=== PATIENT | female | born 1955 | race Two or more races ===

== ENCOUNTER → 2016-06-04 | Outpatient (CLI) | payer OTHER | LOC: BRMIMAGING 15:16 | DX: Z12.31 Encounter for screening mammogram for malignant neoplasm of breast (principal) | CPT/HCPCS: G0202 ==

== ENCOUNTER → 2016-06-23 | Outpatient (CLI) | payer OTHER | LOC: BRMIMAGING 09:16 | DX: R92.8 Other abnormal and inconclusive findings on diagnostic imaging of breast (principal) | CPT/HCPCS: G0206 ==

== ENCOUNTER 2017-08-09 10:49 | Emergency (ER) | payer OTHER ==
--- NOTE | 2017-08-09 11:13 | CPEKG ---
Heart Rate: 84 RR Interval: 714 P-R Interval: 156 QRSD Interval: 86 QT Interval: 408 QTC Interval: 483 P Benton: 13 QRS Benton: 28 T Wave Benton: -25 EKG Severity - ABNORMAL ECG - EKG Impression: SINUS RHYTHM EKG Impression: BORDERLINE INFERIOR Q WAVES EKG Impression: BORDERLINE T ABNORMALITIES, INFERIOR LEADS Electronically Signed By: Cindy Oliveira 09-Aug-2017 15:21:44
[2017-08-09] MEDS ORDERED: NS 1,000 ML IV ONE ×2 (11:15→12:03)
[2017-08-09] MEDS ORDERED: ONDANSETRON 4 MG/2 ML VIAL IVP ONE (11:15)
--- NOTE | 2017-08-09 11:16 | EDPHY ---
H & P Stated Complaint: nause vomit epigastric pain Source: Patient, Family, [employer] Exam Limitations: Language barrier - Personal History Current Tetanus/Diphtheria Vaccine: Unsure Current Tetanus Diphtheria and Acellular Pertussis (TDAP): Unsure - Medical/Surgical History Hx Asthma: No Hx Chronic Respiratory Disease: No Hx Diabetes: No Hx Cardiac Disease: No Hx Renal Disease: No Hx Cirrhosis: No Hx Alcoholism: No Hx HIV/AIDS: No Hx Splenectomy or Spleen Trauma: No Other PMH: med hx-none. surg-cataracts,left ear3 - Social History Smoking Status: Never smoked Time Seen by Provider: 08/09/17 11:14 HPI/ROS: HPI: This is a 62-year-old female who presents with Chief Complaint: nausea vomit epigastric pain Location: Epigastric Quality: Nausea vomiting discomfort Duration: Starting this morning around 8:00 a.m. Signs and Symptoms: no fever, + chills, + nausea, + vomiting, no hematemesis, no blood in stool, no abdominal bloating, no diarrhea, no back pain, no urinary symptoms, no vaginal bleeding/discharge, no indigestion, no chest pain, no shortness of breath Timing: Acute, constant Severity: 10/18 Context: Patient reports that 2 weeks ago she had her left bottom tooth extracted. She was placed on 7 weeks of antibiotics. She went to see the dentist for follow-up yesterday and placed on another 7 days of Keflex and given oxycodone with Tylenol for pain control. She has taken 3 doses of the Keflex. She reports that after taking the Keflex and oxycodone yesterday evening she was nauseous but did not vomit. This morning she woke up with chills. She took her Keflex and oxycodone and felt nauseous. 1 hr later she vomited her stomach contents. She then started to experience some epigastric abdominal discomfort, nonradiating in nature. Touching the area makes the pain worse. She had a normal bowel movement this morning. Denies any diarrhea/fever /urinary symptoms. She denies any jaw pain/facial swelling. She was able to eat breakfast without difficulty. No history of abdominal surgery. Modifying Factors: See above Comment: ROS: see HPI Constitutional: No fever, + chills, no weight loss Eyes: No blurred vision Respiratory: No shortness of breath, no cough Cardiovascular: No chest pain, no palpitations Gastrointestinal: + nausea, + vomiting, no diarrhea, no hematemesis, no blood in stool Genitourinary: No dysuria, no blood in urine Extremities: No myalgias, no edema Neurologic: No weakness, no numbness Skin: No rashes, no petechiae Hematologic: No bruising, no bleeding MEDICAL/SURGICAL/SOCIAL HISTORY: Medical history: Generally healthy. Does not take any regular medications. Surgical history: Cataracts, left ear x3 Social history: Family history noncontributory. CONSTITUTIONAL: Ill but nontoxic-appearing elderly female, multiple family members at bedside, awake and alert, no obvious distress HEENT: Atraumatic and normocephalic, PERRL, EOMI. Nares patent; no rhinorrhea; no nasal mucosal edema. Tympanic membranes clear. Oropharynx clear, no exudate and moist pink mucosa. Airway patent. No lymphadenopathy. No meningismus. Cardiovascular: Normal S1/S2, regular rate, regular rhythm, without murmur rub or gallop. PULMONARY/CHEST: Symmetrical and nontender. Clear to auscultation bilaterally. Good air movement. No accessory muscle usage. ABDOMEN: Soft, nondistended, mild epigastric tenderness, no rebound, no guarding, no peritoneal signs, no masses or organomegaly. No CVAT. EXTREMITIES: 2/2 pulses, strength 5/5, no deformities, no clubbing, no cyanosis or edema. NEUROLOGICAL: no focal neuro deficits. GCS 15. SKIN: Warm and dry, no erythema. no rash. Good capillary refill. (Yang,Terra) Constitutional: Initial Vital Signs Temperature (C) 37.0 C 08/09/17 11:00 Heart Rate 88 08/09/17 11:00 Respiratory Rate 22 H 08/09/17 11:00 Blood Pressure 160/100 H 08/09/17 11:00 O2 Sat (%) 100 08/09/17 11:00 O2 Delivery Mode Room Air Allergies/Adverse Reactions: Sulfa (Sulfonamide Antibiotics) Allergy (Verified 04/22/14 10:36) Home Medications: Medication Instructions Recorded Multiple Vitamins For Women 06/28/13 HYDROmorphone HCL [Dilaudid 2 mg 2 mg PO Q4 PRN #12 tab 08/09/17 (*)] Keflex 08/09/17 Promethazine HCl [Phenergan 12.5mg 12.5 mg PO Q6 PRN #12 tablet 08/09/17 tab] Medical Decision Making - Diagnostics EKG Interpretation: 12 lead EKG is interpreted in Trace master View by emergency department physician. (Cindy Oliveira) ED Course/Re-evaluation: EKG, labs including lactic acid, IV fluids, IV medication, CT abdomen and pelvis scan ordered Vital signs reviewed and stable. No systemic signs. Given 1 L normal saline, IV Zofran EKG shows normal sinus rhythm rate of 84 beats per minute, nonspecific T-waves noted. 1200: Labs reviewed. Lactic acid 5; 30 ml/kg=2 L NS. No signs of leukocytosis /anemia/JENNY/elevated LFTs/electrolyte imbalance/coagulopathy/pancreatitis/ACS. 1230: Called by radiologist who advised that there is 9 mm gallstone; no signs of cholecystitis. Lung bases do not show effusion or pneumonia. No signs of obstruction, hiatal hernia, appendicitis. Right upper quadrant ultrasound ordered. 1307: Urinalysis shows trace LE; but no clear signs of infection 1310: Repeat lactic acid drawn after completion of 2 L normal saline. Repeat lactic acid 1.8; doubt sepsis 1322: ED decision to consult hospitalist for admission for severely elevated lactic acid etiology likely dehydration for IV fluids, repeat labs in observation overnight after discussion with attending. Hospitalist agrees to come down to the emergency room and consult on patient. Called by Radiology who advised that upper quadrant ultrasound shows gallstone but no signs of obstruction or cholecystitis. 1440: Appreciate hospitalist, Dr. Ware, consult who recommends patient is safe to be discharged home. Oxycodone has been discontinued. Given prescription for Dilaudid and Zofran. This patient was seen under the supervision of my secondary supervising physician. I evaluated care for this patient independently. Discussed this patient with Dr. Oliveira who did not see the patient. (Corinne Soria) I have evaluated and participated in the management of this patient. My co- signature indicates that I have reviewed this chart and that I agree with the findings and the plan of care as documented. My personal history and physical findings include: Patient's sister helped with language translation. The patient is a 62-year-old female who is 2 weeks status post dental extraction, on antibiotics an oxycodone after seen her dentist in follow-up yesterday. She has had some nausea, 1 bout of vomiting, and subjective fever and chills this morning. She reports midepigastric pain. She also describes what sounds like hyperventilation syndrome. All of this has resolved at the time of my evaluation. Lungs are clear to auscultation, heart is regular rate and rhythm, abdomen is soft, nontender, nondistended. No peritoneal signs. I reviewed the patient's evaluation. I have spoken with the hospitalist who was consulted concerning this patient. I am comfortable with her returning home, as is the patient and her sister. I do not think that she has a sepsis syndrome. It sounds to me as if the"spell"she experienced was hyperventilation. Her abdomen is benign at the time of my evaluation. As per Dr. Ware note, it is possible that steatosis has contributed to her elevated lactate. I do not think that this lab value indicates a problem requiring hospitalization. (Cindy Oliveira) Differential Diagnosis: Abdominal pain including but not limited to appendicitis, cholecystitis, gastritis and urinary tract infection. (Corinne Soria) - Data Points Laboratory Results: Laboratory Results 08/09/17 11:15 08/09/17 11:15 Medications Given: Discontinued Medications Sodium Chloride (Ns) 1,000 mls @ 0 mls/hr IV EDNOW ONE; Wide Open PRN Reason: Protocol Stop: 08/09/17 11:16 Last Admin: 08/09/17 11:20 Dose: 1,000 mls Sodium Chloride (Ns) 1,000 mls @ 0 mls/hr IV EDNOW ONE; Wide Open PRN Reason: Protocol Stop: 08/09/17 12:04 Last Admin: 08/09/17 12:10 Dose: 1,000 mls Ondansetron HCl (Zofran) 4 mg IVP EDNOW ONE Stop: 08/09/17 11:16 Last Admin: 08/09/17 11:21 Dose: 4 mg Departure - Departure Disposition: [facility] Acute Clinical Impression: Sepsis, Cholelithiasis, Medication adverse effect Condition: Good Instructions: Hyperventilation (ED), Dehydration (ED), Acute Nausea and Vomiting (ED) Additional Instructions: Consume a minimum of 8-10 glasses of water or electrolyte fluid replacement drinks that include Gatorade, Powerade, Pedialyte. Eat a bland diet for the next 48 hours and then slowly advance as tolerated. Take Zofran 1 tab every 4 hours as needed for nausea, vomiting. Return to the Emergency Room if symptoms do not resolve in the next 48-72 hours , you spike a fever > 102 F, or experience intractable abdominal pain/nausea/ vomiting. Referrals: Tre Mckeon MD [Medical Doctor] - As per Instructions Stand Alone Forms: Work Excuse Prescriptions: HYDROmorphone HCL [Dilaudid 2 mg (*)] 2 mg PO Q4 PRN #12 tab PRN Reason: Pain, Severe Promethazine HCl [Phenergan 12.5mg tab] 12.5 mg PO Q6 PRN #12 tablet PRN Reason: Nausea/Vomiting, Use 1st
[2017-08-09 11:24] LABS: PLATELET COUNT 277 10^3/uL (150-400)
[2017-08-09 11:35] LABS: INR 0.92 (0.83-1.16); PROTIME(PATIENT) 12.6 SEC (12.0-15.0)
[2017-08-09] MEDS ORDERED: IOPAMIDOL (ISOVUE-300) 100 ML BTL ONE (11:58)
--- NOTE | 2017-08-09 15:01 | GCON ---
[f rep st] CONSULTATION DATE OF CONSULTATION: 08/09/2017 HISTORY OF PRESENT ILLNESS: The patient is a pleasant 62-year-old female with minimal past medical h istory, who presents with an episode of chills, vomiting, nausea, and a "spell." Her recent course h as been complicated by a tooth being pulled, and she has been on 7 days of antibiotics. She had ongo ing pain. She went back and saw her dentist and was given more antibiotic pills as well as oxycodone . She took them yesterday twice and vomited twice. She took them this morning and vomited again. D uring her episodes of vomiting, she had some shaking. She has not had diarrhea, fever, or urinary sy mptoms. She gives a history of perhaps right upper quadrant pain following eating a number of times over the years but no reliable history of biliary colic. She ate this morning without difficulty. S he has never had abdominal surgery. She does not have any heart failure symptoms. She has no histor y of exertional dyspnea. REVIEW OF SYSTEMS: Complete 10-point review of systems conducted and negative except as noted in the HPI. PAST MEDICAL HISTORY: Recent tooth extraction. ALLERGIES: Sulfa. HOME MEDICATIONS: Percocet, oxycodone, and vitamins. SOCIAL HISTORY: Originally from [facility]. Alcohol and tobacco are minimal. FAMILY HISTORY: Sister is at the bedside and is helpful and healthy. PHYSICAL EXAMINATION: VITAL SIGNS: Temp 37, blood pressure 160/100 (now 145/89), pulse 88, breathin g 22 times a minute, 100% in room air. GENERAL: No acute distress. HEENT: Sclerae anicteric. Raquel pharynx is clear. Her site of tooth extraction (left rear molar) is without purulence, fluctuance, e rythema, or odor. NECK: Supple without lymphadenopathy or JVD. LUNGS: Clear auscultation bilatera lly. HEART: S1, S2. Soft, nontender, nondistended. LOWER EXTREMITIES: Without edema. Calves non tender. SKIN: Without rash. NEUROLOGIC: Nonfocal. LABORATORY DATA: Sodium 143, potassium 3.5, chloride 105, bicarb 18, BUN 11, creatinine 0.6, glucose 143. LFTs normal other than ALT of 53. Troponin less than 0.012. Lipase 39. Venous lactate was 5 upon presentation; notably, she was not tachycardic. It is now 1.8. UA is negative. Coags normal. CBC normal. There is no white count. EKG interpreted by me shows sinus at 84 with normal axis and intervals. No ST or T-wave changes. No prior for comparison. Abdominal CT shows one 10 mm gallstone with otherwise no intraabdominal process; images reviewed and interpreted by me. Abdominal ultrasound shows gallstone with normal gallbladder wall thickness and no biliary ductal dil ation noted. Some mild hepatic steatosis without ascites. I discussed the case with CHIN Saul, of the emergency department. ASSESSMENT/PLAN: A 62-year-old female with vomiting and briefly elevated lactate. 1. Briefly elevated lactate: The patient has steatosis, which may lead to reduced clearance of lact ate. The patient does not have sepsis syndrome. 2. Spell: I believe this is an autonomic spell in the setting of vomiting, as this occurred tempora lly related to that. I spent 20 minutes explaining to the family that this is unlikely to represent a seizure or other primary neurologic event. 3. Vomiting: Seems to be awfully temporally related to Percocet, which is a classic culprit nausea vomiting medicine. I provided them with a prescription for Dilaudid pills as well as Phenergan. 4. Tooth extraction: Continue antibiotics per dentist. 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 5. Disposition: I believe the patient is safe to be discharged from the hospital. I provided with discharge return to the ER. Will call back if her blood cultures are positive. Thank you for this delightful consultation. /[id number]/MODL
[2017-08-09 15:27] VITALS: BP 155/97
== END 2017-08-09 15:27 | disposition still patient (30) ==
DX: K80.20 Calculus of gallbladder without cholecystitis without obstruction (principal); T36.1X5A Adverse effect of cephalosporins and other beta-lactam antibiotics, initial encounter; T50.7X5A Adverse effect of analeptics and opioid receptor antagonists, initial encounter; A41.9 Sepsis, unspecified organism; E86.9 Volume depletion, unspecified
CPT/HCPCS: 96374; J2405; Q9967

== ENCOUNTER → 2018-04-26 | Outpatient (CLI) | payer OTHER | LOC: FIMAGING 13:01 | PROVIDERS: ATTEND Physician Assistant | DX: K80.20 Calculus of gallbladder without cholecystitis without obstruction (principal) ==